=== PATIENT | female | born 1985 | race Two or more races ===

== ENCOUNTER 2017-12-31 22:52 | Emergency (ER) | payer OTHER ==
[~2017-12-31] VITALS: Ht 172.7 cm; Wt 78.9 kg
[2017-12-31 23:23] VITALS: BP 107/83
== END 2018-01-01 02:30 | disposition left against medical advice (07) ==
LOC: ER 23:11
DX: M25.552 Pain in left hip (principal); M54.9 Dorsalgia, unspecified; Z53.21 Procedure and treatment not carried out due to patient leaving prior to being seen by health care provider